=== PATIENT | male | born 1955 ===

== ENCOUNTER 2021-07-19 12:15 | Inpatient (IN) | payer OTHER ==
[~2021-07-19] VITALS: Ht 175.3 cm; Wt 86.2 kg
[2021-07-19] MEDS ORDERED: FENOFIBRATE150 MG (15:38)
[2021-07-19] MEDS ORDERED: ATORVASTATIN CA40 MG (15:38)
[2021-07-19] MEDS ORDERED: COZAAR100 MG (15:38)
[2021-07-25] MEDS ORDERED: INTEGRA PLUS C1 EACH PO (07:55)
[2021-07-25] MEDS ORDERED: XARELTO10 MG PO (07:55)
[2021-07-25] MEDS ORDERED: BACTRIM DS TAB1 EACH PO (07:55)
[2021-07-25] MEDS ORDERED: OXYC1TAB9 PO (07:55)
== END 2021-07-25 13:47 | DRG 470 ==
LOC: O/R 07-23 10:24 → SURH 07-23 12:15
PROVIDERS: ADMIT Orthopaedic Surgery Sports Medicine; ATTEND Orthopaedic Surgery Sports Medicine
PROC: 0SRB0J9 Replacement of Left Hip Joint with Synthetic Substitute, Cemented, Open Approach (ICD-10-PCS; principal; 2021-07-23 14:30)
DX: M16.12 Unilateral primary osteoarthritis, left hip (principal)